=== PATIENT | female | born 1995 | race Caucasian/White ===

== ENCOUNTER 2019-01-03 13:51 | Emergency (ER) | payer SELFPAY ==
[~2019-01-03] VITALS: Ht 157.5 cm; Wt 98.0 kg
[2019-01-03] MEDS ORDERED: IBUPROFEN 800MG TABLET PO ONE (14:45)
[2019-01-03 14:52] VITALS: BP 159/93
[2019-01-03] MEDS ORDERED: DEXAMETHASONE 10 MG/ML VIAL IM ONE (15:00)
[2019-01-03] MEDS ORDERED: KETOROLAC 60MG/2ML VIAL IM ONE (15:00)
== END 2019-01-03 15:19 | disposition home or self-care (01) ==
LOC: ER 13:51
DX: M54.42 Lumbago with sciatica, left side (principal)
CPT/HCPCS: 99281; 99283; J1100; J1885

== ENCOUNTER 2019-08-30 09:18 | Emergency (ER) | payer SELFPAY ==
[~2019-08-30] VITALS: Ht 160 cm; Wt 100.0 kg
[2019-08-30 09:52] VITALS: BP 143/92
== END 2019-08-30 11:20 | disposition home or self-care (01) ==
LOC: ER 09:18
DX: M25.562 Pain in left knee (principal); M25.561 Pain in right knee; X50.3XXA Overexertion from repetitive movements, initial encounter; Y93.89 Activity, other specified; Y92.89 Other specified places as the place of occurrence of the external cause
CPT/HCPCS: 99282

== ENCOUNTER 2020-12-15 19:32 | Emergency (ER) | payer SELFPAY ==
[~2020-12-15] VITALS: Ht 160 cm; Wt 112.9 kg
[2020-12-15 19:39] VITALS: BP 180/104
== END 2020-12-15 19:45 | disposition left against medical advice (07) ==
LOC: ER 19:32
DX: Z53.21 Procedure and treatment not carried out due to patient leaving prior to being seen by health care provider (principal)

== ENCOUNTER 2021-04-21 22:35 | Emergency (ER) | payer SELFPAY ==
[~2021-04-21] VITALS: Ht 162.6 cm; Wt 90.0 kg
[2021-04-21 22:45] VITALS: BP 166/95
[2021-04-21 23:17] LABS: BASOPHILS % 0.6 % (0.0-2.0); EOSINOPHILS % 1.9 % (0.0-5.0); HEMOGLOBIN. 13.1 g/dL (12.0-16.0); LYMPHOCYTES % 25.1 % (20.0-50.0); MEAN CORPUSCULAR HEMOGLOBIN 24.4 pg (28.0-32.0); MEAN CORPUSCULAR VOLUME 74.7 fL (81.0-99.0); MEAN PLATELET VOLUME 9.1 fl (7.4-10.4); MONOCYTES % 5.9 % (2.0-8.0); NEUTROPHILS % 66.5 % (40.0-76.0); PLATELET 219 x1000/uL (130-400); RED BLOOD CELL COUNT 5.36 mill/uL (4.2-5.4); RED CELL DISTRIBUTION WIDTH 16.2 % (11.6-14.6)
[2021-04-21 23:21] LABS: CHLORIDE 105 mEq/L (98-107)
== END 2021-04-21 23:31 | disposition left against medical advice (07) ==
LOC: ER 22:35
DX: I10 Essential (primary) hypertension (principal); R10.9 Unspecified abdominal pain
CPT/HCPCS: 36415; 80053; 85025; 99283

== ENCOUNTER 2021-09-15 14:36 | Emergency (ER) | payer MEDICAID ==
[~2021-09-15] VITALS: Ht 162.6 cm; Wt 90.0 kg
[2021-09-15 14:47] VITALS: BP 153/99
== END 2021-09-15 21:27 | disposition left against medical advice (07) ==
LOC: ER 14:36
DX: Z53.21 Procedure and treatment not carried out due to patient leaving prior to being seen by health care provider (principal)

== ENCOUNTER 2022-01-13 20:23 | Emergency (ER) | payer MEDICAID ==
[~2022-01-13] VITALS: Ht 157.5 cm; Wt 110.0 kg
[2022-01-14] MEDS ORDERED: KETOROLAC 60MG/2ML VIAL IM ONE (02:00)
[2022-01-14 02:59] VITALS: BP 206/118
[2022-01-14] MEDS ORDERED: IBUP-2029 MT (03:07)
[2022-01-14] MEDS ORDERED: CYCL5TAB MT (03:07)
== END 2022-01-14 04:01 | disposition home or self-care (01) ==
LOC: ER 20:35
DX: S39.012A Strain of muscle, fascia and tendon of lower back, initial encounter (principal); X58.XXXA Exposure to other specified factors, initial encounter; Y93.89 Activity, other specified; Y92.9 Unspecified place or not applicable
CPT/HCPCS: 81025; 96372; 99283; J1885

== ENCOUNTER 2022-12-29 21:54 | Emergency (ER) | payer MEDICAID ==
[~2022-12-29] VITALS: Ht 165.1 cm; Wt 91.0 kg
[~2022-12-29 21:54] MED LIST: CYCL5TAB MT; IBUP-2029 MT
[2022-12-29 22:02] VITALS: BP 152/98; PULSE 101; RESP 20; O2SAT 98
[2022-12-29] MEDS ORDERED: HYDR-459 MT (22:20)
== END 2022-12-29 22:40 | disposition home or self-care (01) ==
LOC: ER 21:54
DX: F41.0 Panic disorder [episodic paroxysmal anxiety] (principal); I10 Essential (primary) hypertension
CPT/HCPCS: 99283

== ENCOUNTER 2023-09-22 20:30 | Emergency (ER) | payer MEDICAID ==
[~2023-09-22] VITALS: Ht 162.6 cm; Wt 111.0 kg
[~2023-09-22 20:30] MED LIST changes: +HYDR-459 MT
[2023-09-22 20:35] VITALS: BP 159/74; PULSE 86; RESP 18; TEMP 98.3; O2SAT 100
[2023-09-22 22:17] LABS: CLARITY URINE CLOUDY (CLEAR); COLOR URINE YELLOW (YELLOW); GLUCOSE URINE NEGATIVE (NEGATIVE); KETONES URINE TRACE (NEGATIVE); LEUKOCYTE ESTERASE URINE NEGATIVE (NEGATIVE); NITRITE URINE NEGATIVE (NEGATIVE); OCCULT BLOOD URINE NEGATIVE (NEGATIVE); PH URINE 5.5 (4.5-8.0); PROTEIN URINE 1+ (NEGATIVE); SPECIFIC GRAVITY URINE 1.031 (1.005-1.030)
[2023-09-22 22:29] LABS: BACTERIA URINE NONE SEEN; CALCIUM OXALATE CRYSTALS URINE 1+ /lpf; RBC URINE NONE SEEN /hpf (0-2)
[2023-09-22 22:30] LABS: SQUAMOUS EPITHELIAL CELL URINE 1+ /lpf (RARE/1+); WBC URINE 0-2 /hpf (0-2)
== END 2023-09-22 21:53 | disposition left against medical advice (07) ==
LOC: ER 20:30
DX: R19.7 Diarrhea, unspecified (principal); F41.9 Anxiety disorder, unspecified; I10 Essential (primary) hypertension
CPT/HCPCS: 81003; 99283

== ENCOUNTER 2024-01-17 15:51 | Emergency (ER) | payer MEDICAID ==
[~2024-01-17] VITALS: Ht 165.1 cm; Wt 100.0 kg
[2024-01-17 16:09] VITALS: TEMP 98.6; O2SAT 100
[2024-01-17 17:42] LABS: CLARITY URINE CLOUDY (CLEAR); COLOR URINE YELLOW (YELLOW); GLUCOSE URINE NEGATIVE (NEGATIVE); KETONES URINE TRACE (NEGATIVE); LEUKOCYTE ESTERASE URINE NEGATIVE (NEGATIVE); NITRITE URINE NEGATIVE (NEGATIVE); OCCULT BLOOD URINE NEGATIVE (NEGATIVE); PROTEIN URINE TRACE (NEGATIVE); SPECIFIC GRAVITY URINE 1.024 (1.005-1.030)
[2024-01-17 17:56] LABS: BASOPHILS % 0.4 % (0.0-2.0); DIFFERENTIAL COMMENT 0; EOSINOPHILS % 2.5 % (0.0-5.0); HEMATOCRIT. 37.9 % (36.0-48.0); HEMOGLOBIN. 11.9 g/dL (12.0-16.0); LYMPHOCYTES % 25.7 % (20.0-50.0); MEAN CORPUSCULAR HGB CONC 31.4 g/dL (31.0-37.0); MEAN CORPUSCULAR VOLUME 76.3 fL (81.0-99.0); MONOCYTES % 6.2 % (2.0-8.0); NEUTROPHILS % 65.2 % (40.0-76.0); PLATELET 187 x1000/uL (130-400); RED BLOOD CELL COUNT 4.97 mill/uL (4.2-5.4); RED CELL DISTRIBUTION WIDTH 17.2 % (11.6-14.6); WHITE BLOOD COUNT 8.9 x1000/uL (4.5-11.0)
[2024-01-17 18:02] LABS: CHLORIDE 106 mEq/L (98-107); POTASSIUM 3.4 mEq/L (3.5-5.1); SODIUM 137 mEq/L (136-145)
[2024-01-17 18:03] LABS: CARBON DIOXIDE 23 mEq/L (21-32)
[2024-01-17 18:07] LABS: BACTERIA URINE TRACE; RBC URINE NONE SEEN /hpf (0-2); SQUAMOUS EPITHELIAL CELL URINE FEW /lpf (RARE/1+); WBC URINE NONE SEEN /hpf (0-2)
[2024-01-17 18:08] LABS: CREATININE 0.7 mg/dL (0.6-1.0)
[2024-01-17 18:09] LABS: GLUCOSE 102 mg/dL (70-105); UREA NITROGEN BLOOD 11 mg/dL (9-23)
[2024-01-17 18:22] LABS: B-HCG QUANTITATIVE 49123 mIU/mL (<3)
[2024-01-17] MEDS ORDERED: ONDANSETRON 4MG ODT PO ONE (18:45)
[2024-01-17] MEDS ORDERED: PY25 MT (19:23)
[2024-01-17] MEDS: ONDANSETRON HCL 4MG TABLET PO ONE (19:36)
[2024-01-17 19:39] VITALS: BP 152/90; PULSE 77; RESP 18; O2SAT 99
== END 2024-01-17 19:41 | disposition home or self-care (01) ==
LOC: ER 15:51
DX: O26.891 Other specified pregnancy related conditions, first trimester (principal); O99.341 Other mental disorders complicating pregnancy, first trimester; O10.911 Unspecified pre-existing hypertension complicating pregnancy, first trimester; Z3A.12 12 weeks gestation of pregnancy
CPT/HCPCS: 80048; 81003; 81025; 84702; 85025; 36415; 76801; 76817; 99284; Q0162; Z7610

== ENCOUNTER 2024-02-08 23:44 | Emergency (ER) | payer MEDICAID ==
[~2024-02-08] VITALS: Ht 165.1 cm; Wt 110.7 kg
[~2024-02-08 23:44] MED LIST changes: -CYCL5TAB MT; +CYCL5TAB3 MT; +PY25 MT
[2024-02-08 23:50] VITALS: O2SAT 100
[2024-02-08 23:55] VITALS: BP 134/68; PULSE 77; RESP 18; TEMP 97.7; O2SAT 99
[2024-02-09 00:35] LABS: CLARITY URINE CLOUDY (CLEAR); COLOR URINE DARK YELLOW (YELLOW); GLUCOSE URINE NEGATIVE (NEGATIVE); KETONES URINE TRACE (NEGATIVE); LEUKOCYTE ESTERASE URINE TRACE (NEGATIVE); NITRITE URINE NEGATIVE (NEGATIVE); OCCULT BLOOD URINE NEGATIVE (NEGATIVE); PH URINE 5.5 (4.5-8.0); PROTEIN URINE 2+ (NEGATIVE); SPECIFIC GRAVITY URINE 1.031 (1.005-1.030)
[2024-02-09] MEDS ORDERED: SODIUM CHLORIDE 0.9% 1,000 ML IV ONE (00:45)
[2024-02-09] MEDS ORDERED: FAMOTIDINE 20MG/2ML VIAL IV ONE (00:45)
[2024-02-09] MEDS ORDERED: ONDANSETRON HCL 4MG/2ML INJ IV ONE (00:45)
[2024-02-09 00:57] LABS: BACTERIA URINE 1+; RBC URINE 0-2 /hpf (0-2); SQUAMOUS EPITHELIAL CELL URINE 1+ /lpf (RARE/1+); WBC URINE 0-2 /hpf (0-2)
== END 2024-02-09 04:46 | disposition home or self-care (01) ==
LOC: ER 23:53
DX: O26.892 Other specified pregnancy related conditions, second trimester (principal); O21.0 Mild hyperemesis gravidarum; O99.342 Other mental disorders complicating pregnancy, second trimester; O10.912 Unspecified pre-existing hypertension complicating pregnancy, second trimester; F41.9 Anxiety disorder, unspecified; Z3A.15 15 weeks gestation of pregnancy
CPT/HCPCS: 99284; 76705; 76801; 81003; 81025; J7030

== ENCOUNTER 2024-03-07 23:23 | Emergency (ER) | payer MEDICAID ==
[~2024-03-07] VITALS: Ht 165.1 cm; Wt 96.0 kg
[2024-03-07 23:27] VITALS: O2SAT 100
[2024-03-08] MEDS: ACETAMINOPHEN 500MG TABLET PO ONE (01:36)
[2024-03-08] MEDS: DIPHENHYDRAMINE 25MG CAPSULE PO ONE (01:37)
[2024-03-08] MEDS: METOCLOPRAMIDE HCL 10MG TABLET PO ONE (01:37)
[2024-03-08 01:39] LABS: CHLORIDE 102 mEq/L (98-107); POTASSIUM 3.8 mEq/L (3.5-5.1); SODIUM 136 mEq/L (136-145)
[2024-03-08 01:40] LABS: BASOPHILS % 0.2 % (0.0-2.0); CARBON DIOXIDE 26 mEq/L (21-32); DIFFERENTIAL COMMENT 0; EOSINOPHILS % 2.4 % (0.0-5.0); HEMATOCRIT. 37.6 % (36.0-48.0); LYMPHOCYTES % 27.5 % (20.0-50.0); MEAN CORPUSCULAR HEMOGLOBIN 24.5 pg (28.0-32.0); MEAN CORPUSCULAR VOLUME 76.3 fL (81.0-99.0); MEAN PLATELET VOLUME 9.4 fl (7.4-10.4); MONOCYTES % 7.7 % (2.0-8.0); NEUTROPHILS % 62.2 % (40.0-76.0); PLATELET 170 x1000/uL (130-400); RED BLOOD CELL COUNT 4.92 mill/uL (4.2-5.4); RED CELL DISTRIBUTION WIDTH 15.9 % (11.6-14.6); WHITE BLOOD COUNT 8.2 x1000/uL (4.5-11.0)
[2024-03-08 01:41] LABS: CALCIUM 9.6 mg/dL (8.7-10.4)
[2024-03-08 01:45] LABS: CREATININE 0.7 mg/dL (0.6-1.0); GLUCOSE 94 mg/dL (70-105)
[2024-03-08 01:46] LABS: UREA NITROGEN BLOOD 8 mg/dL (9-23)
[2024-03-08 01:47] LABS: ALANINE AMINOTRANSFERASE 42 IU/L (10-49); ALBUMIN 4.2 g/dL (3.2-4.8); ASPARTATE AMINOTRANSFERASE 18 IU/L (<34)
[2024-03-08 01:48] LABS: BILIRUBIN TOTAL 0.2 mg/dL (0.1-1.0); PROTEIN TOTAL 7.1 g/dL (6.0-8.3)
[2024-03-08 02:01] LABS: B-HCG QUANTITATIVE 8440 mIU/mL (<3); BILIRUBIN DIRECT < 0.1 mg/dL (<=3.0)
[2024-03-08 02:58] VITALS: BP 130/70; PULSE 83; RESP 18; TEMP 36.66960; O2SAT 98
== END 2024-03-08 03:00 | disposition home or self-care (01) ==
LOC: ER 23:23
DX: O26.892 Other specified pregnancy related conditions, second trimester (principal); O13.2 Gestational [pregnancy-induced] hypertension without significant proteinuria, second trimester; R51.9 Headache, unspecified; F41.9 Anxiety disorder, unspecified; Z3A.18 18 weeks gestation of pregnancy
CPT/HCPCS: 99284; 80076; 80048; 84702; 85025; 36415; Q0163; J8597; 99291

== ENCOUNTER 2024-06-12 20:45 | Emergency (ER) | payer MEDICAID ==
[~2024-06-12] VITALS: Ht 162.6 cm; Wt 100.0 kg
[2024-06-12 20:50] VITALS: O2SAT 98
[2024-06-13] VITALS: BP 130/80; PULSE 90; RESP 18; TEMP 36.7; O2SAT 98
== END 2024-06-13 | disposition home or self-care (01) ==
LOC: ER 20:45
DX: O36.8130 Decreased fetal movements, third trimester, not applicable or unspecified (principal); O10.913 Unspecified pre-existing hypertension complicating pregnancy, third trimester; Z3A.30 30 weeks gestation of pregnancy
CPT/HCPCS: 76815; 99284

== ENCOUNTER 2024-08-01 00:20 | Emergency (ER) | payer MEDICAID ==
[~2024-08-01] VITALS: Ht 162.6 cm; Wt 91.0 kg
[2024-08-01 00:40] VITALS: O2SAT 100
[2024-08-01 01:01] LABS: BASOPHILS % 0.7 % (0.0-2.0); DIFFERENTIAL COMMENT 0; EOSINOPHILS % 5.3 % (0.0-5.0); HEMATOCRIT. 34.1 % (36.0-48.0); HEMOGLOBIN. 10.7 g/dL (12.0-16.0); LYMPHOCYTES % 18.2 % (20.0-50.0); MEAN CORPUSCULAR HEMOGLOBIN 22.2 pg (28.0-32.0); MEAN CORPUSCULAR HGB CONC 31.5 g/dL (31.0-37.0); MEAN CORPUSCULAR VOLUME 70.5 fL (81.0-99.0); MEAN PLATELET VOLUME 8.9 fl (7.4-10.4); MONOCYTES % 6.4 % (2.0-8.0); NEUTROPHILS % 69.4 % (40.0-76.0); PLATELET 236 x1000/uL (130-400); RED BLOOD CELL COUNT 4.83 mill/uL (4.2-5.4); RED CELL DISTRIBUTION WIDTH 17.1 % (11.6-14.6)
[2024-08-01] MEDS: MAGNESIUM/ALUMINUM HYDROXIDE/SIMETHICONE 30ML UDC PO ONE (01:06)
[2024-08-01] MEDS: ONDANSETRON 4MG ODT PO ONE (01:06)
[2024-08-01 01:11] VITALS: BP 152/92; PULSE 90; RESP 19; TEMP 37.1; O2SAT 99
[2024-08-01 01:23] LABS: CHLORIDE 106 mEq/L (98-107); POTASSIUM 3.8 mEq/L (3.5-5.1); SODIUM 141 mEq/L (136-145)
[2024-08-01 01:24] LABS: CARBON DIOXIDE 26 mEq/L (21-32)
[2024-08-01 01:29] LABS: CREATININE 1.1 mg/dL (0.6-1.0); GLUCOSE 126 mg/dL (70-105); UREA NITROGEN BLOOD 11 mg/dL (9-23)
[2024-08-01 01:31] LABS: ALANINE AMINOTRANSFERASE 18 IU/L (10-49); ALBUMIN 4.2 g/dL (3.2-4.8); ASPARTATE AMINOTRANSFERASE 18 IU/L (<34); BILIRUBIN DIRECT < 0.1 mg/dL (<=3.0); BILIRUBIN TOTAL 0.3 mg/dL (0.1-1.0); PROTEIN TOTAL 6.8 g/dL (6.0-8.3)
== END 2024-08-01 03:17 | disposition home or self-care (01) ==
LOC: ER 00:20
DX: K21.9 Gastro-esophageal reflux disease without esophagitis (principal); I10 Essential (primary) hypertension; Z79.899 Other long term (current) drug therapy
CPT/HCPCS: 99283; 80076; 80048; 83690; 85025; 36415; Q0162